=== PATIENT | male | born 1965 | race African-American/Black ===

== ENCOUNTER 2019-12-06 14:05 | Emergency (ER) | payer OTHER ==
[~2019-12-06] VITALS: Ht 182.9 cm; Wt 113.4 kg
[2019-12-06] MEDS ORDERED: PREDNISONE 20 M20 MG PO (14:44)
[2019-12-06] MEDS ORDERED: VALACYCLOVIR1000 MG PO (14:44)
[2019-12-06 14:50] VITALS: BP 158/99
== END 2019-12-06 15:06 | disposition home or self-care (01) ==
LOC: ER 14:05
DX: G51.0 Bell's palsy (principal); F17.210 Nicotine dependence, cigarettes, uncomplicated